=== PATIENT | female | born 2005 | race Caucasian/White ===

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

== ENCOUNTER 2024-05-03 08:54 | Emergency (ER) | payer OTHER, MEDICAID, SELFPAY ==
[2024-05-03] VITALS (8 sets, daily range): BP systolic 117–145; BP diastolic 64–78; PULSE 75–99; RESP 16; TEMP 36.4; O2SAT 97–98; BMI 21.7
--- NOTE | 2024-05-03 09:15 | DI.US.S_ITS ---
PROCEDURE: Pelvic ultrasound INDICATIONS: bleeding, patient presented to the ED for possible miscarriage, negative test. TECHNIQUE: Real-time transabdominal scanning was performed of the pelvic organs, with image documentation. Endovaginal scanning was declined. COMPARISON: None. FINDINGS: The uterus is anteverted measuring 7.2 x 3.4 x 4.6 cm. The myometrium is homogeneous. The endometrial thickness measures up to 5 mm. The right ovary measures 3.6 x 2.2 x 3.5 cm with a calculated ovarian volume of 14.4 cc. The left ovary measures 2.5 x 1.6 x 1.4 cm with a calculated ovarian volume of 2.9 cc. There is normal sonographic appearance of the bilateral ovaries with less than 12 follicles seen within each ovary. No adnexal masses. IMPRESSION: Normal sonographic appearance of the uterus and bilateral ovaries. Approved by: Piper Damon M.D.,Ph.D. on 05/03/2024 at 10:09
--- NOTE | 2024-05-03 09:27 | ED_ITS ---
HPI - Female Genitourinary General Chief complaint: Vaginal Bleeding Stated complaint: Vaginal bleeding, possible miscarriage Time Seen by Provider: 05/03/24 09:15 Source: patient Mode of arrival: Ambulatory History of Present Illness HPI Narrative: Patient is a 18-year-old female who presents today with 10 days of vaginal bleeding. She reports that she changes her pad about every 3 hours. She says about 3 weeks ago she took plan B to avoid . She is taken it previously and has had menstrual. Almost immediately after but this time she did not. She is since taken multiple test they have been negative. She says she continues to have vaginal bleeding. She has not currently on control. She previously tried the pill she did not like the way it made her feel she is also tried the patch. In his not interested in an IUD. Related Data Previous Rx's Medication Instructions Recorded medroxyprogesterone 10 mg tablet 10 mg PO DAILY #10 tabs 05/03/24 (Provera) Allergies Allergy/AdvReac Type Severity Reaction Status Date / Time No Known Drug Allergies Allergy Unverified 08/28/21 15:03 Exam Initial Vital Signs Initial Vital Signs: Vital Signs Pulse Rate 91 H 05/03/24 09:07 Pulse Oximetry 97 05/03/24 09:07 GENERAL: Alert pleasant well-appearing 18-year-old female and in no acute distress. HEENT: Head atraumatic,EOMI, pupils reactive, face symmetric, moist mucous membranes CARDIOVASCULAR: Regular rate and rhythm without murmurs, rubs or gallops. RESPIRATORY: Breath sounds equal bilaterally, no wheezes rales or rhonchi. ABDOMEN: Soft, nontender. Normoactive bowel sounds all 4 quadrants. No guarding or rebound. PELVIC: External genitalia is normal, vaginal vault filled with blood no excessive wheezing easily wiped away EXTREMITIES: Normal range of motion, no clubbing or edema. Neurovascularly intact NEUROLOGICAL: Alert and oriented x4.Normal gait and speech. SKIN: Warm, dry, no laceration, no petechiae, no rashes or lesions. Course Orders Ordered: ED Orders 05/03/24 09:15 US pelvic complete Stat 05/03/24 09:45 ABO RH Type Stat CBC Auto Diff [Complete Blood Count AUTO DIFF] Stat CMP [Comprehensive Metabolic Panel] Stat HCG Quantitative /Beta subunit Stat 05/03/24 10:10 Urine Microscopic Stat Discontinued Medications Medroxyprogesterone Acetate (Medroxyprogesterone Acetate 10 Mg Tablet) 20 mg PO NOW ONE Stop: 05/03/24 11:54 Vital Signs Vital signs: Vital Signs - 8 hr 05/03/24 09:07 05/03/24 09:11 05/03/24 09:30 Temperature 97.6 F Pulse Rate 91 H 99 H 83 Respiratory Rate 16 Blood Pressure 145/78 H Pulse Oximetry 97 97 98 Oxygen Delivery Method Room Air 05/03/24 10:00 05/03/24 10:14 05/03/24 10:14 Temperature Pulse Rate 75 94 H Respiratory Rate Blood Pressure 127/64 Pulse Oximetry 98 97 Oxygen Delivery Method 05/03/24 10:37 05/03/24 11:00 05/03/24 11:00 Temperature Pulse Rate 78 75 Respiratory Rate Blood Pressure 117/70 Pulse Oximetry 97 98 Oxygen Delivery Method 05/03/24 11:30 05/03/24 11:30 Temperature Pulse Rate 92 H Respiratory Rate Blood Pressure 119/66 Pulse Oximetry 97 Oxygen Delivery Method MDM - Female Genitourinary Lab Data 05/03/24 09:45 05/03/24 09:45 Labs: Lab Results 05/03/24 05/03/24 Range/Units 09:45 10:10 WBC 7.8 (4.5-11.0) X10^3/uL RBC 4.60 (4.0-5.2) X10^6/uL Hgb 12.9 (12.0-16.0) g/dL Hct 38.9 (36-46) % MCV 84.5 (80-100) fL MCH 28.0 (26-34) PG MCHC 33.1 (30-36) % RDW 13.8 (11.6-14.8) % Plt Count 240 (150-400) X10^3/uL Neut % (Auto) 65.8 (50-75) % Lymph % (Auto) 20.0 L (25-40) % Kemper % (Auto) 11.4 (3-14) % Eos % (Auto) 2.4 (2-4) % Baso % (Auto) 0.4 (0-2) % Neut # (Auto) 5100 (1159-2605) /uL Lymph # (Auto) 1600 (9894-1832) /uL Kemper # (Auto) 900 (0-900) /uL Eos # (Auto) 200 (0-450) /uL Baso # (Auto) 0 (0-100) /uL Sodium 138 (137-145) mmol/L Potassium 4.2 (3.4-5.1) mmol/L Chloride 107 (98-107) mmol/L Carbon Dioxide 26 (22-32) mmol/L BUN 11 (7-17) mg/dL Creatinine 0.59 (0.52-1.04) mg/dL Estimated GFR > 60 (>60) mL/min BUN/Creatinine Ratio 18.6 (6-22) Glucose 98 (70-100) mg/dL Calcium 8.9 (8.4-10.2) mg/dL Total Bilirubin 0.5 (0.2-1.3) mg/dL AST 20 (14-36) IU/L ALT 14 (<35) IU/L Alkaline Phosphatase 39 (38-126) U/L Total Protein 7.1 (6.3-8.2) g/dL Albumin 4.3 (3.5-5.0) g/dL Globulin 2.8 (1.7-4.1) g/dL Albumin/Globulin Ratio 1.5 (1.0-2.8) HCG, Quant < 2.39 mIU/mL Urine RBC 0-1/hpf (0-5/HPF) Urine WBC 0-1/hpf (0-5/HPF) Ur Squamous Epith Cells 10-30 /hpf H (0-5/HPF) Urine Bacteria Few (2-10) H (None) Ur Culture Indicated? Cult not indicated Vol Urine Centrifuged 10ml (spun) Blood Type A Positive Point of Care Testing Test Results Negative Urine Dip Bedside Urine Glucose Negative Bedside Urine Bilirubin - Negative Bedside Urine Ketone - Negative Urine Specific Thompson 1.015 Bedside Urine Occult Blood +++ Bedside Urine pH 7.5 Bedside Urine Protein - Negative Bedside Urine Urobilinogen - Negative Bedside Urine Nitrite - Negative Bedside Urine Leukocytes - Negative Esterase Imaging Data [facility] - [employer] DEPARTMENT: Radiologist's Impression: PROCEDURE: Pelvic ultrasound INDICATIONS: bleeding, patient presented to the ED for possible miscarriage, negative test. TECHNIQUE: Real-time transabdominal scanning was performed of the pelvic organs, with image documentation. Endovaginal scanning was declined. COMPARISON: None. FINDINGS: The uterus is anteverted measuring 7.2 x 3.4 x 4.6 cm. The myometrium is homogeneous. The endometrial thickness measures up to 5 mm. The right ovary measures 3.6 x 2.2 x 3.5 cm with a calculated ovarian volume of 14.4 cc. The left ovary measures 2.5 x 1.6 x 1.4 cm with a calculated ovarian volume of 2.9 cc. There is normal sonographic appearance of the bilateral ovaries with less than 12 follicles seen within each ovary. No adnexal masses. IMPRESSION: Normal sonographic appearance of the uterus and bilateral ovaries. Approved by: Piper Damon M.D.,Ph.D. on 05/03/2024 at 10:09 MDM Narrative Medical decision making narrative: Patient 18-year-old female presents today with vaginal bleeding. There is no evidence of or miscarriage. However she is excessive bleeding for the last 10 days and continues to have bleeding and ED. She has not hypotensive tachycardic or anemic. Blood work has been reviewed hemoglobin 12.9 hematocrit 38.9 Ultrasound has been reviewed without evidence or significantly thickened endometrium ovaries are within normal limits. Pelvic exam does have some vaginal bleeding but does not seem to be accepts Long discussion with patient about control options along with [facility] to get yearly Pap smears. She is given 20 mg of Provera here in the ED along with a prescription Discharge Plan Departure Patient Disposition: Home Clinical Impression: Vaginal bleeding Instructions: DI for Dysmenorrhea Activity Restrictions/Additional Instructions: *You have been diagnosed with vaginal bleeding *What to do: At this time please discuss with the [facility] about control options. *Continue to take medications as directed Provera 10 mg twice a day for 2 days and once daily until gone bleeding should slow down significantly *Follow up with your primary care provider in 2-3 days or call [phone] *Return to ER if you should have increase bleeding more than 2 super pad or tampon in 1 hour dizziness lightheadedness severe abdominal pain or cramps or any new, worsening or concerning symptoms Prescriptions: New medroxyprogesterone [Provera] 10 mg tablet 10 mg PO DAILY Qty: 10 0RF Rx Instructions: 1 tablet twice a day for 2 days, then 1 once daily until gone Referrals: Miscellaneous,Doctor, MD [Primary Care Provider] - Stand Alone Forms: Patient Portal/API
[2024-05-03 09:53] LABS: Add Manual Diff / Slide Review NO; Basophils Absolute Auto 0 /uL (0-100); Basophils Percent Auto 0.4 % (0-2); Eosinophils Absolute Auto 200 /uL (0-450); Eosinophils Percent Auto 2.4 % (2-4); Hematocrit 38.9 % (36-46); Hemoglobin 12.9 g/dL (12.0-16.0); Lymphocytes Absolute Auto 1600 /uL (1100-4500); Mean Corpuscular HGB Conc 33.1 % (30-36); Mean Corpuscular Volume 84.5 fL (80-100); Monocytes Absolute Auto 900 /uL (0-900); Monocytes Percent Auto 11.4 % (3-14); Neutrophils Absolute Auto 5100 /uL (1500-7000); Neutrophils Percent Auto 65.8 % (50-75); Platelet Count 240 X10^3/uL (150-400); Red Cell Distribution Width 13.8 % (11.6-14.8); White Blood Cell Count 7.8 X10^3/uL (4.5-11.0)
[2024-05-03 10:13] LABS: Alanine Aminotransferase 14 IU/L (<35); Albumin 4.3 g/dL (3.5-5.0); Albumin Globulin Ratio 1.5 (1.0-2.8); Alkaline Phosphatase 39 U/L (38-126); Aspartate Aminotransferase 20 IU/L (14-36); BUN Creatinine Ratio 18.6 (6-22); Bilirubin Total 0.5 mg/dL (0.2-1.3); Blood Urea Nitrogen 11 mg/dL (7-17); Calcium 8.9 mg/dL (8.4-10.2); Carbon Dioxide 26 mmol/L (22-32); Chloride 107 mmol/L (98-107); Estimated Glomerular Filt Rate > 60 mL/min (>60); Globulin 2.8 g/dL (1.7-4.1); Glucose 98 mg/dL (70-100); HEMOLYSIS < 15 (0-50); Potassium 4.2 mmol/L (3.4-5.1); Sodium 138 mmol/L (137-145); Total Protein 7.1 g/dL (6.3-8.2)
[2024-05-03 10:59] LABS: Bacteria Urine Few (2-10); Culture Indicated Urine Cult Not Indicated; RBC Urine 0-1/HPF (0-5/HPF); Squamous Epithelial Cell Urine 10-30 /HPF (0-5/HPF); Urine Volume 10mL (spun); WBC Urine 0-1/HPF (0-5/HPF)
[2024-05-03 12:55] LABS: HCG Quantitative /Beta subunit < 2.39 mIU/mL
== END 2024-05-03 12:05 | disposition home or self-care (01) ==
PROVIDERS: Emergency Provider Emergency Medicine
DX: N93.9 Abnormal uterine and vaginal bleeding, unspecified (principal)
CPT/HCPCS: 36415; 76856; 80053; 81003; 81015; 81025; 84702; 85025; 86900; 86901; 99283; 99284

== ENCOUNTER → 2025-01-03 10:16 | Outpatient (CLI) | payer OTHER, SELFPAY | PROVIDERS: Visit Provider Physician Assistant Surgical | DX: J02.9 Acute pharyngitis, unspecified (principal) | CPT/HCPCS: 87070 ==

== ENCOUNTER → 2025-01-03 10:57 | Outpatient (CLI) | payer OTHER, SELFPAY ==
--- NOTE | 2025-01-03 11:00 | DI.RAD.S_ITS ---
PROCEDURE: XR CHEST 2V INDICATIONS: SOB, cough TECHNIQUE: 2 views of the chest were acquired. COMPARISON: None. FINDINGS AND IMPRESSION: No dense airspace disease or pleural effusions. Normal heart size. Unremarkable osseous structures. Dictated by: Cr De La O M.D. on 01/03/2025 at 11:36 Approved by: Cr De La O M.D. on 01/03/2025 at 11:36
== END ==
LOC: RAD 10:59
PROVIDERS: Referring Provider Physician Assistant Surgical; Visit Provider Physician Assistant Surgical
DX: R05.9 Cough, unspecified (principal); J02.9 Acute pharyngitis, unspecified
CPT/HCPCS: 71046; 87070

== ENCOUNTER 2025-01-13 08:47 | Emergency (ER) | payer OTHER, SELFPAY ==
--- NOTE | 2025-01-13 08:54 | ED_ITS ---
HPI - Eye Problem General Chief complaint: Eye Problems Stated complaint: contact lens stuck in eye Time Seen by Provider: 01/13/25 08:54 History of Present Illness HPI Narrative: 19-year-old female without any significant past medical history presents to the emergency department from home for evaluation of possible contact lens stuck in eye. She states that she was doing her makeup was calling her lashes and felt like it got stuck in her eye, she states that it has gotten stuck in her eye before, she states that she normally is able to get it out. Denies any visual disturbances. She denies any other complaints or issues at this time. Related Data Previous Rx's Medication Instructions Recorded benzonatate 200 mg capsule 200 mg PO BID PRN cough #30 caps 01/03/25 ipratropium bromide 21 mcg (0.03 2 spray intranasal BID PRN nasal 01/03/25 %) nasal spray congestion #30 mL Allergies Allergy/AdvReac Type Severity Reaction Status Date / Time No Known Drug Allergies Allergy Verified 01/03/25 10:01 Review of Systems Review of Systems Narrative: General: Denies fever, chills, weight loss HEENT: Positive foreign body sensation in left eye, Denies headache, eye drainage,head trauma, sore throat, voice change Cardiovascular: Denies any chest pain, palpitations, shortness of breath, tachycardia Respiratory: Denies any shortness of breath, cough, wheeze, stridor GI/: Denies any abdominal pain, nausea, vomiting, diarrhea, bright red blood per rectum, melanotic stools, urinary frequency, urinary retention, dysuria, hematuria MSK: Denies any joint pain, muscle pains, swelling Skin: Denies any rashes, lesions, discoloration Neuro: Denies any headache, lightheadedness, dizziness, fainting, weakness Psych: Denies SI/HI Patient History Social History Smoking Status: Never smoker Smoking Status: Never smoker Exam Narrative Exam Narrative: General: Cooperative, comfortable, well-developed, not in acute distress HEENT: Normocephalic, atraumatic, PERRLA, normal sclera, eyelids normal, fluorescein stain was performed no corneal abrasion noted, no foreign body noted, Neck: Active full range of motion, atraumatic Chest: Normal to inspection, negative crepitus, no overlying erythema ecchymosis Respiratory: Normal respiratory effort, not in acute respiratory distress, clear to auscultation bilaterally negative cough, wheeze, tachypnea, rhonchi, rales Cardiology: Regular rate rhythm negative gallop, murmur, rubs GI/: Normal to inspection, soft, nonrigid, no tenderness to palpation, exam deferred MSK: Full range of active range of motion of all 4 extremities, atraumatic Skin: No rashes lesions noted Neuro: Alert awake oriented x3, moves all 4 extremities spontaneously, cranial nerves intact, able to answer all questions appropriately follows commands appropriately Psych: Cooperative, negative suicidal or homicidal ideations MDM - Eye Problem Differential Diagnosis Differential diagnosis: Likely corneal abrasion, conjunctivitis, subconjunctival hemorrhage and other (Foreign body) MDM Narrative Medical decision making narrative: 19-year-old female without any significant past medical history presents for foreign body sensation to the left eye, she states that she was doing her makeup curling her eyelashes when she felt like her contact got stuck into her eye, patient had eye exam here which did not show any corneal abrasion or foreign body. Patient was given strict return precautions she verbalized understanding of this and agrees to being discharged home with outpatient follow up Discharge Plan Departure Patient Disposition: Home Clinical Impression: Foreign body sensation, left eye Activity Restrictions/Additional Instructions: Please read the discharge instructions sheet carefully and bring all papers to all doctor follow-up visits, as it may contain information that your doctor may want to see. Disease processes change and evolve, if your symptoms worsen or if you develop any new symptoms that are concerning to you please return for evaluation. Your evaluation today does not show any evidence of any life- threatening/serious illnesses requiring admission to the hospital or surgery. Please follow-up with your doctor for re-evaluation in approximately 1 day. Seek immediate medical attention for any worrisome symptoms. *If you do not have a primary care provider please contact the [facility] Resource line at [phone]. They will ask some questions about your medical history and help get you set up with a doctor in the community. Prescriptions: No Action benzonatate 200 mg capsule 200 mg PO BID PRN (Reason: cough) Qty: 30 0RF ipratropium bromide 21 mcg (0.03 %) spray,non-aerosol 2 spray intranasal BID PRN (Reason: nasal congestion) Qty: 30 0RF Rx Instructions: administer into each nostril Referrals: Miscellaneous,Doctor, MD [Primary Care Provider] - Stand Alone Forms: Patient Portal/API/Survey
[2025-01-13 09:01] VITALS: BP 118/56; PULSE 69; RESP 16; TEMP 36.9; O2SAT 100; BMI 26.3
[2025-01-13] MEDS: PROPARACAINE 0.5% OPHTH SOL 1 DROPS EYE-BOTH (09:03)
[2025-01-13] MEDS: FLUORESCEIN 1 MG STRIP EYE-BOTH (09:04)
== END 2025-01-13 09:27 | disposition home or self-care (01) ==
PROVIDERS: Emergency Provider Student in an Organized Health Care Education/Training Program
DX: H57.8A2 Foreign body sensation, left eye (principal)
CPT/HCPCS: 99282